=== PATIENT | male | born 1970 | race Caucasian/White ===

== ENCOUNTER 2020-06-18 22:26 | Emergency (ER) | payer OTHER ==
[~2020-06-18] VITALS: Ht 185.4 cm; Wt 129.3 kg
[2020-06-18 22:33] VITALS: BP 127/71
--- NOTE | 2020-06-18 23:22 | NUR ---
REC'D NEG COVID RESULTS. AWARE
== END 2020-06-18 23:23 | disposition home or self-care (01) ==
LOC: EDUNIT# 22:26 → ER 22:30
DX: Z20.822 Contact with and (suspected) exposure to COVID-19 (principal)
CPT/HCPCS: 87426; 99283; C9803; U0003

== ENCOUNTER 2025-01-09 22:39 | Emergency (ER) | payer OTHER ==
[~2025-01-09] VITALS: Ht 185.4 cm; Wt 129.3 kg
[2025-01-09 22:42] VITALS: BP 129/87; TEMP 98.5
[2025-01-10] MEDS ORDERED: CIPROFLOXACIN HCL 500 MG TABLET ONE (01:31)
[2025-01-10] MEDS ORDERED: AZITHROMYCIN 250 MG TABLET ONE (01:32)
[2025-01-10] MEDS: CIPROFLOXACIN HCL 250 MG TABLET PO ONE (01:35)
[2025-01-10] MEDS: AZITHROMYCIN 250 MG TABLET PO ONE (01:35)
[2025-01-10 01:45] VITALS: O2SAT 98
== END 2025-01-10 02:41 | disposition short-term general hospital (02) ==
LOC: ER 22:40
DX: Z13.89 Encounter for screening for other disorder (principal)